=== PATIENT | male | born 1995 | race Caucasian/White ===

== ENCOUNTER 2017-03-16 01:31 | Emergency (ER) | payer SELFPAY ==
[~2017-03-16] VITALS: Ht 170.2 cm; Wt 100.0 kg
[2017-03-16 03:01] LABS: BASOPHILS % 0.9 % (0.0-2.0); EOSINOPHILS % 2.3 % (0.0-5.0); HEMATOCRIT. 40.9 % (42.0-52.0); HEMOGLOBIN. 14.2 g/dL (14.0-18.0); LYMPHOCYTES % 41.2 % (20.0-50.0); MEAN CORPUSCULAR HEMOGLOBIN 29.9 pg (28.0-32.0); MEAN CORPUSCULAR HGB CONC 34.8 g/dL (31.0-37.0); MEAN PLATELET VOLUME 9.1 fl (7.4-10.4); MONOCYTES % 9.1 % (2.0-8.0); NEUTROPHILS % 46.5 % (40.0-76.0); PLATELET 210 x1000/uL (130-400); RED BLOOD CELL COUNT 4.75 mill/uL (4.7-6.1); WHITE BLOOD COUNT 7.9 x1000/uL (4.5-11.0)
[2017-03-16 03:12] LABS: ALANINE AMINOTRANSFERASE 40 IU/L (13-61); ALBUMIN 3.5 g/dL (3.4-5.0); CALCIUM 8.5 mg/dL (8.5-10.1); CARBON DIOXIDE 26 mEq/L (21-32); CHLORIDE 107 mEq/L (98-107); INDEX HEMOLYSI 1 (1-3); INDEX ICTERIC 1 (1-4); INDEX LIPEMIC 1 (1-3); TROPONIN I < 0.02 ng/mL (0.00-0.04); eGFR > 60 mL/min (>60)
[2017-03-16 03:28] LABS: ANION GAP 12; UREA NITROGEN BLOOD 10 mg/dL (7-21)
[2017-03-16 05:45] VITALS: BP 123/74
== END 2017-03-16 05:55 | disposition home or self-care (01) ==
LOC: ER 01:31
DX: R07.89 Other chest pain (principal); E78.00 Pure hypercholesterolemia, unspecified
CPT/HCPCS: 36415; 71010; 80053; 84484; 85025; 85379; 93005; 99285; Z7610